=== PATIENT | female | born 1985 | race Two or more races ===

== ENCOUNTER 2024-05-01 06:25 | Day surgery (SDC) | payer MEDICAID, SELFPAY ==
--- NOTE | 2024-04-25 06:44 | EKG_ITS ---
[facility] (Formerly [facility]) Test Date: 2024-04-25 Pat Name: RENATO DEL CASTILLO Department: Room: - Gender: Female Collar Pointer: RT STUDENT : 1985 Requested By: Kvng Scott Order Number: [id number] Reading MD: Kvng Scott Measurements Intervals [place] Rate: 61 P: 23 SC: 156 QRS: 30 QRSD: 82 T: 26 QT: 396 QTc: 399 Interpretive Statements SINUS RHYTHM No previous ECG available for comparison /[id number]/[email or web address]/[id number]
[2024-04-25 08:22] VITALS: BMI 27.5
[2024-04-25 09:26] LABS: Basophils % (Auto) 0 % (0-2.5); Eosinophils # (Auto) 0.2 Thou/mm3 (0.0-0.5); Eosinophils % (Auto) 3 % (0-10); Hematocrit 44.5 % (36.0-46.0); Hemoglobin 14.9 g/dL (12.0-16.0); Immature Granulocytes % (Auto) 1 % (0-0); Immature Granulocytes Auto 0.05 Thou/mm3 (0.00-0.00); Lymphocytes # (Auto) 1.9 Thou/mm3 (1.0-4.8); Lymphocytes % (Auto) 22 % (10-50); Mean Corpuscular HGB Conc 33.5 g/dl (31.0-37.0); Mean Corpuscular Hemoglobin 29.9 pg (25.0-35.0); Mean Corpuscular Volume 89 fL (80-100); Monocytes # (Auto) 0.7 Thou/mm3 (0.0-0.8); Monocytes % (Auto) 8 % (0-12); Neutrophils # (Auto) 5.8 Thou/mm3 (1.8-7.7); Neutrophils % (Auto) 67 % (37-80); Nucleated Red Blood Cell % 0 /100 WBC (0); Platelet Count 331 Thou/mm3 (140-440); RDW Standard Deviation 43.3 fL (36.4-46.3); Red Blood Count 4.99 Miln/mm3 (4.00-5.20); White Blood Count 8.6 Thou/mm3 (3.6-11.0)
[2024-04-25 09:31] LABS: Anion Gap 8 (7-16); BUN/Creatinine Ratio 22 Ratio (12-20); Blood Urea Nitrogen 13 mg/dL (9-23); Calcium 8.8 mg/dL (8.3-10.6); Carbon Dioxide 25.7 mMol/L (20.0-31.0); Chloride 111 mMol/L (98-107); Creatinine (Component) 0.6 mg/dL (0.6-1.3); Estimated Creatinine Clearance 118.5 mL/min (>60); Glucose 119 mg/dL (74-106); Osmolality,Calculated 289 (275-295); Sodium 145 mMol/L (136-145); eGFR > 60 See Note
[2024-04-25 09:34] LABS: Alanine Aminotransferase 19 U/L (10-49); Albumin, Serum 4.8 gm/dL (3.5-5.0); Albumin/Globulin Ratio 1.7 (1.2-2.2); Alkaline Phosphatase 78 U/L (46-116); Anion Gap 9 (7-16); Aspartate Amino Transferase 17 U/L (0-34); BUN/Creatinine Ratio 20 Ratio (12-20); Bilirubin,Total 0.5 mg/dL (0.3-1.2); Blood Urea Nitrogen 12 mg/dL (9-23); Carbon Dioxide 25.6 mMol/L (20.0-31.0); Chloride 110 mMol/L (98-107); Creatinine (Component) 0.6 mg/dL (0.6-1.3); Estimated Creatinine Clearance 118.5 mL/min (>60); Globulin 2.9 gm/dL (2.3-3.5); Glucose 119 mg/dL (74-106); Osmolality,Calculated 289 (275-295); Sodium 145 mMol/L (136-145); Total Protein 7.7 gm/dL (5.7-8.2); eGFR > 60 See Note
[2024-04-25 09:39] LABS: Partial Thromboplastin Time 29.1 Seconds (22.0-36.0); Prothrombin Time 10.8 Seconds (9.0-12.2)
[2024-04-25 09:47] LABS: HCG,Qualitative Serum Negative
[2024-05-01] VITALS (9 sets, daily range): BP systolic 105–121; BP diastolic 71–84; PULSE 62–83; RESP 12–14; TEMP 36.6–36.7; O2SAT 97–100; BMI 27.4
[2024-05-01] MEDS: RINGERS LACTATED 1000 ML 1,000 ML 20 ML IV (07:03)
--- NOTE | 2024-05-01 09:43 | PD.SUROPNT ---
Date of Procedure 05/01/24 Pre Op Diagnosis Symptomatic varicose veins left lower extremity Post Op Diagnosis Same as preop diagnosis Procedure Radiofrequency endovenous ablation of the greater saphenous vein left lower extremity Varicose vein excisions left lower extremity through 26 separate incisions Findings The greater saphenous vein was successfully ablated with no evidence of thrombus in the saphenofemoral junction or common femoral vein All marked varicose veins were successfully removed or disrupted Procedure Description With the patient standing in the preop area all varicose veins to be removed were carefully marked with a sharpie pen. The patient was then brought to the operating room and general anesthesia was induced. The left lower extremity was then sterilely prepped and draped. A timeout was performed. The ultrasound was used to localize the greater saphenous vein just above the knee and under ultrasound guidance a 21-gauge needle was used to access the vein followed by an 018 guidewire then a 7 Croatian sheath introducer was placed. The ablation catheter was then brought to the field, prepped and placed into the patient with the tip carefully positioned 3 to 5 cm distal to the saphenofemoral junction. Tumescent anesthesia was then instilled along the treatment length of the vein. Catheter tip position was once again checked then under direct ultrasound compression the catheter was activated with 2 cycles proximally and 3 additional cycles down the leg. The saphenofemoral junction and common femoral vein were then inspected with ultrasound and found to be compressible with good flow with augmentation and no evidence of thrombus in the saphenofemoral junction or common femoral vein. The catheter and sheath were then removed and pressure was held till hemostasis was obtained. The varicose veins were addressed next by making a small skin joaquin in each marked area then bluntly enlarging the incision with a mosquito clamp and sequentially grasping and avulsing the varicose veins. When all veins were either disrupted or removed the limb was washed, dried and Steri-Strips were placed to reapproximate the incisions. Sterile gauze Kerlix and an Ned wrap were then placed on the leg. The patient woke well from anesthesia was moved to recovery in stable condition Anesthesia other (Laryngeal mask anesthesia) Pathology / specimen Other (Left leg varicose veins) Estimated Blood Loss 50 Condition Stable Disposition PACU Surgeon Kvng Pinto MD Surgical Staff Operation Date: 05/01/24 08:30 <No data on this case meets the specified criteria>
--- NOTE | 2024-05-01 10:54 | SUR.PHASEI ---
0956: Pt received in [facility] via gurney. Report from Jose VILLALPANDO and Dr. Cardoza. Oral airway in place. Resp even, unlabored. VS stable. Dressing to left lower leg dry, clean, intact. Bilateral pedal pulses strong, regular. 1002: Pt stirring. Oral airway dc'd. Resp even, unlabored. 1024: Pt resting with no complaints voiced. Resp even, unlabored. VS stable. Dressing to left lower leg remains dry, clean, intact. Bilateral pedal pulses strong, regular upon palpation. Denies pain.
--- NOTE | 2024-05-01 10:58 | SUR.PHASEII ---
1048: Pt more awake, alert. VS stable. Dressing unchanged. Denies pain. Pt sitting up tolerating po fluids with no difficulty swallowing and no n/v.
--- NOTE | 2024-05-01 11:39 | SUR.PHASEII ---
1112: Pt fully awake, oriented x3. VS stable. Dressing dry, clean, intact. Bilateral pedal pulses strong, regular. Pt dressed. Assisted to transport chair. Ambulation steady. Pt requested translate for her. Pt and stated understanding of discharge instructions. Pt discharged from [facility] in stable condition.
== END 2024-05-01 11:12 | disposition home or self-care (01) ==
PROVIDERS: Anesthesiology; PCP Nurse Practitioner; Referring Provider Surgery Vascular Surgery; Visit Provider Surgery Vascular Surgery
PROC: (CPT 36475; principal; 2024-05-01 08:30)
DX: I83.812 Varicose veins of left lower extremity with pain (principal); Z01.810 Encounter for preprocedural cardiovascular examination
CPT/HCPCS: 37766; 36475; 36415; 80048; 80053; 84703; 85025; 85610; 85730; 93005; A4217; A4649; C1888; C1894; J0690; J1100; J1885; J2250; J2405; J2704; J3010; J7050; J7120